=== PATIENT | female | born 1965 | race Caucasian/White ===

== ENCOUNTER 2020-12-06 13:15 | Emergency (ER) | payer MEDICAID ==
[~2020-12-06] VITALS: Ht 162.6 cm; Wt 51.4 kg
[~2020-12-06 13:15] MED LIST: ACETAMINOPHEN500 M1 PO; CYCLOBENZAPRINE10 MG PO; IBUPROFEN800 MG PO; PEPCID40 MG PO; TORADOL10 MG PO
[2020-12-06 13:37] VITALS: BP 129/72; Ht 162.6 cm; Wt 51.4 kg
== END 2020-12-06 16:09 | disposition left against medical advice (07) ==
LOC: D.ER 13:15
DX: M54.5 Low back pain (principal); Z53.29 Procedure and treatment not carried out because of patient's decision for other reasons; I10 Essential (primary) hypertension; Z72.0 Tobacco use